=== PATIENT | female | born 1995 | race Caucasian/White ===

== ENCOUNTER 2016-06-02 17:17 | Emergency (ER) | payer OTHER ==
[~2016-06-02] VITALS: Ht 160 cm; Wt 167.8 kg
[~2016-06-02 17:17] MED LIST: CLARITIN10 M1 PO
--- NOTE | 2016-06-02 17:32 | ED GENERAL ADULT ---
History of Present Illness General Chief Complaint: General Adult Stated Complaint: PT SIB FOR A SCAN OF THE HEART Source: patient, family Exam Limitations: no limitations Vital Signs & Intake/Output Vital Signs & Intake/Output Vital Signs Date Time Temp Pulse Resp B/P Pulse O2 O2 Flow FiO2 Ox Delivery Rate 06/02 1721 97.2 94 16 141/74 97 Room Air Allergies Coded Allergies: cat dander (RUNNY NOSE, ITCHY EYES, SNEEZING 03/04/16) nickel (SKIN TURNS GREEN AND ITCHES 03/04/16) Reconcile Medications Loratadine (Claritin) 10 MG TABLET 1 TAB PO DAILY ALLERGIES (Reported) Triage Note: PT STATES SHE WAS SENT BY HER PCP FOR A CT SCAN TO R/O AORTIC DISECTION. PT STATES SHE JUST HAD AN EKG IN HIS OFFICE AND HE WANTED HER TO COME TO ED. Triage Nurses Notes Reviewed? yes Onset: Abrupt Duration: sent from Dr. Isaac's office Timing: single episode today Injury Environment: DOCTOR'S OFFICE Severity: mild : No Patient currently breastfeeds: No HPI: 21 year old female who presents to the ER from Dr. Isaac's office for chief complaint of ? aortic dissection seen on outpatient Echocardiogram. Patient reports a history of ventricular ectopy and was having a routine echocardiogram in the outdoor adventure leader's office. THey thought Past History Travel History Traveled to [place] past 21 day No Medical History Any Pertinent Medical History? see below for history Cardiovascular: PVC Musculoskeletal: OBESITY Surgical History Surgical History: non-contributory Psychosocial History What is your primary language Portuguese Tobacco Use: Never used ETOH Use: denies use Illicit Drug Use: denies illicit drug use Family History Hx Contributory? No Review of Systems Review of Systems Constitutional: Denies: chills, fever. EENTM: Reports: no symptoms. Respiratory: Denies: cough, short of breath, sputum production. Cardiovascular: Reports: chest pain (intermittent discomfort). Denies: palpitations. GI: Denies: abdominal pain. Genitourinary: Reports: no symptoms. Musculoskeletal: Denies: back pain. Skin: Reports: no symptoms. Neurological/Psychological: Reports: no symptoms. Hematologic/Endocrine: Denies: bruising, bleeding, polyuria, other. Immunologic/Allergic: Denies: splenectomy. All Other Systems: Reviewed and Negative Physical Exam Physical Exam General Appearance: well developed/nourished, alert, awake, obese Head: atraumatic, normal appearance Eyes: Bilateral: normal appearance, PERRL, EOMI. Ears, Nose, Throat: normal pharynx, normal ENT inspection Neck: normal inspection, supple, full range of motion Respiratory: normal breath sounds, chest non-tender, no respiratory distress Cardiovascular: regular rate/rhythm Peripheral Pulses: 2+ radial (R), 2+ radial (L) Gastrointestinal: normal bowel sounds, soft, non-tender Extremities: normal inspection, normal capillary refill, normal range of motion, no edema Neurologic/Psych: no motor/sensory deficits, awake, alert, oriented x 3, normal gait Skin: intact, normal color, warm/dry Core Measures ACS in differential dx? No CVA/TIA Diagnosis: No Severe Sepsis Present: No Septic Shock Present: No Progress Differential Diagnoses I considered the following diagnoses in my evaluation of the patient: [AORTIC DISSECTION, CLOT, technical error] Plan of Care: Orders Procedure Date/time Status Add-on Test (ER Only) 06/02 1839 Active TROPONIN LEVEL 06/02 1744 Complete PARTIAL THROMBOPLASTIN TIME 06/02 1744 Complete PROTHROMBIN TIME 06/02 1744 Complete COMPREHENSIVE METABOLIC PANEL 06/02 1744 Complete CBC WITHOUT DIFFERENTIAL 06/02 1744 Complete HUMAN BETA HCG SCREEN 06/02 1736 Complete EKG 06/02 1725 Active Laboratory Tests 06/02/16 1839: Sodium Cancelled, Potassium Cancelled, Chloride Cancelled, Carbon Dioxide Cancelled, Anion Gap Cancelled, BUN Cancelled, Creatinine Cancelled, BUN/ Creatinine Ratio Cancelled, Glucose Cancelled, Calcium Cancelled, Total Bilirubin Cancelled, AST Cancelled, ALT Cancelled, Alkaline Phosphatase Cancelled, Troponin I Cancelled, Total Protein Cancelled, Albumin Cancelled, Globulin Cancelled, Albumin/Globulin Ratio Cancelled, PT Cancelled, INR Cancelled, APTT Cancelled, CBC w Diff Cancelled, WBC Cancelled, RBC Cancelled, Hgb Cancelled, Hct Cancelled, MCV Cancelled, MCH Cancelled, RDW Cancelled, Plt Count Cancelled, MPV Cancelled, PUBS MCHC Cancelled 06/02/16 1800: Troponin I Cancelled, APTT Cancelled, CBC w Diff Cancelled, WBC Cancelled, RBC Cancelled, Hgb Cancelled, Hct Cancelled, MCV Cancelled, MCH Cancelled, RDW Cancelled, Plt Count Cancelled, MPV Cancelled, PUBS MCHC Cancelled 06/02/16 1744: Anion Gap 11, Estimated GFR > 60, BUN/Creatinine Ratio 13.3, Glucose 95, Calcium 9.4, Total Bilirubin 0.9, AST 27, ALT 40, Alkaline Phosphatase 95, Troponin I < 0.01, Total Protein 7.3, Albumin 4.1, Globulin 3.2, Albumin/Globulin Ratio 1.3, Total Beta HCG NEGATIVE, PT 11.5, INR 1.10, APTT 33, CBC w Diff NO MAN DIFF REQ, RBC 4.78, MCV 87.3, MCH 29.2, RDW 13.7, MPV 9.2, Gran % 68.2, Lymphocytes % 26.1 , Monocytes % 4.1, Eosinophils % 1.2, Basophils % 0.4, Absolute Granulocytes 7.4 H, Absolute Lymphocytes 2.8, Absolute Monocytes 0.4, Absolute Eosinophils 0.1, Absolute Basophils 0, PUBS MCHC 33.[address] angiogram results with Dr. Johnson ([facility]) Diagnostic Imaging: Viewed by Me: CT Scan. Discussed w/RAD: CT Scan. Initial ED EKG: NSR, PVC'S Comments: PATIENT: ANDRE CALDERON PRESENT AGE: 21 PATIENT ACCOUNT NO: [id number] : 95 LOCATION: [facility] ORDERING PHYSICIAN: CAL REYEZ SERVICE DATE: 06/02/16 EXAM TYPE: CAT - CTA CHEST-AORTIC DISSECTION EXAMINATION: CTA OF THE CHEST WITH CONTRAST CLINICAL INFORMATION: Cardiology evaluation for dissection COMPARISON: None available. TECHNIQUE: First, a noncontrast CT of the chest was performed. Next, a CTA acquisition of the chest is obtained following the administration of 95 mL of Optiray 350 intravenous contrast without complication. 3-D post processing including the acquisition of multiplanar MIP reformats and curved multiplanar reconstructions are obtained at the technologist workstation and utilized for image interpretation. FINDINGS: There is no evidence of dense intramural hematoma on the noncontrast CT acquisition of the chest. Assessment of the ascending aorta is limited by motion artifact and streak artifact from dense contrast opacification of the IVC. No definite aortic dissection is identified accounting for artifact. Thoracic aortic luminal contour appears normal. There is no aortic aneurysm. There is a small amount of fluid within the pericardial recesses. There is a small pericardial effusion. Heart is normal in size. This examination is not tailored to assess the pulmonary arterial vasculature, not diagnostically evaluated on this study. Partially imaged thyroid gland is normal. There is no mediastinal lymphadenopathy. There is no focal consolidation, pleural effusion, or pneumothorax. No focal pulmonary nodules. The partially imaged upper abdomen demonstrates diffuse hepatic steatosis. There are no acute osseous findings. IMPRESSION: - There is no definite evidence of aortic dissection. Please note that assessment of the ascending thoracic aorta is limited secondary to motion and streak artifact. No thoracic aortic aneurysm. - There is a small pericardial effusion. - The lungs are clear. - Hepatic steatosis. DICTATED BY: CHIRAG JARRETT MD DATE/TIME DICTATED:06/02/161938 MANAGER PLANT:NANY DATE/TIME TRANSCRIBED:06/02/161938 CONFIDENTIAL, DO NOT COPY WITHOUT APPROPRIATE AUTHORIZATION. <Electronically signed in Other Vendor System> SIGNED BY: CHIRAG JARRETT MD 06/02/161952 Departure Departure Time of Disposition: 2008 Disposition: HOME OR SELF CARE Condition: Stable Clinical Impression Primary Impression: PVCs (premature ventricular contractions) Referrals: UNKNOWN (PCP/Family) Additional Instructions: FOLLOW UP WITH DR ISAAC IN THE OFFICE. RETURN TO THE ER FOR ANY CHANGING OR WORSENING SYMPTOMS. Departure Forms: Customer Survey General Discharge Information Critical Care Note Critical Care Note Critical Care Time: non-applicable
[2016-06-02 18:51] LABS: ABSOLUTE BASOPHIL COUNT 0 /CUMM (0.0-0.2); ABSOLUTE EOSINOPHIL COUNT 0.1 /CUMM (0.0-0.7); ABSOLUTE GRANULOCYTE CT 7.4 /CUMM (1.4-6.5); ABSOLUTE LYMPH COUNT 2.8 /CUMM (1.2-3.4); ABSOLUTE MONOCYTE COUNT 0.4 /CUMM (0.10-0.60); BASOPHIL % 0.4 % (0.0-2.0); EOSINOPHIL % 1.2 % (0-5); GRANULOCYTE % 68.2 % (42.2-75.2); HEMATOCRIT 41.8 % (37-47); MEAN CORPUSCULAR HGB 29.2 PG (27.0-31.0); MEAN CORPUSCULAR HGB CONC 33.4 G/DL (33.0-37.0); MEAN CORPUSCULAR VOLUME 87.3 FL (81.0-99.0); MEAN PLATELET VOLUME 9.2 FL (7.4-10.4); PLATELET COUNT 273 /CUMM (130-400); RBC DISTRIBUTION WIDTH 13.7 % (11.5-14.5); RED BLOOD CELL CT 4.78 /CUMM (4.20-5.40); WHITE BLOOD CELL COUNT 10.8 /CUMM (4.8-10.8)
[2016-06-02 19:07] LABS: PT 11.5 SEC (9.4-12.5); PTT 33 SEC (25-37)
--- NOTE | 2016-06-02 19:53 | CT SCAN REPORT ---
EXAMINATION: CTA OF THE CHEST WITH CONTRAST CLINICAL INFORMATION: Cardiology evaluation for dissection COMPARISON: None available. TECHNIQUE: First, a noncontrast CT of the chest was performed. Next, a CTA acquisition of the chest is obtained following the administration of 95 mL of Optiray 350 intravenous contrast without complication. 3-D post processing including the acquisition of multiplanar MIP reformats and curved multiplanar reconstructions are obtained at the technologist workstation and utilized for image interpretation. FINDINGS: There is no evidence of dense intramural hematoma on the noncontrast CT acquisition of the chest. Assessment of the ascending aorta is limited by motion artifact and streak artifact from dense contrast opacification of the IVC. No definite aortic dissection is identified accounting for artifact. Thoracic aortic luminal contour appears normal. There is no aortic aneurysm. There is a small amount of fluid within the pericardial recesses. There is a small pericardial effusion. Heart is normal in size. This examination is not tailored to assess the pulmonary arterial vasculature, not diagnostically evaluated on this study. Partially imaged thyroid gland is normal. There is no mediastinal lymphadenopathy. There is no focal consolidation, pleural effusion, or pneumothorax. No focal pulmonary nodules. The partially imaged upper abdomen demonstrates diffuse hepatic steatosis. There are no acute osseous findings. IMPRESSION: - There is no definite evidence of aortic dissection. Please note that assessment of the ascending thoracic aorta is limited secondary to motion and streak artifact. No thoracic aortic aneurysm. - There is a small pericardial effusion. - The lungs are clear. - Hepatic steatosis.
[2016-06-02 20:17] VITALS: BP 118/80
== END 2016-06-02 20:28 ==
LOC: ERH 17:17
PROVIDERS: Physician Assistant
DX: I49.3 Ventricular premature depolarization (principal)
CPT/HCPCS: 93005; 93010